=== PATIENT | male | born 1990 | race Caucasian/White ===

== ENCOUNTER 2020-08-14 15:36 | Emergency (ER) | payer MEDICAID ==
[~2020-08-14] VITALS: Ht 188 cm; Wt 99.8 kg
[2020-08-14 15:40] VITALS: BP 155/100
--- NOTE | 2020-08-14 15:47 | NUR ---
PT AMBULATED TO BED 12.
--- NOTE | 2020-08-14 15:51 | NUR ---
DR CARDOSO AT BEDSIDE EVALUATING PT.
[2020-08-14] MEDS ORDERED: LIDOCAINE VISCOUS 2% 20 ML UDC ONE (15:55)
[2020-08-14] MEDS ORDERED: DICYCLOMINE HCL LIQUID 10 MG/5 ML UDC ONE (15:55)
[2020-08-14] MEDS ORDERED: ALUMINUM HYD/MAG/SIMETHICONE 30 ML UDC ONE (15:55)
[2020-08-14] MEDS: NACL 0.9% 1,000 ML IV ONE (16:06)
[2020-08-14] MEDS: ONDANSETRON 4 MG/2 ML VIAL IVP ONE (16:07)
[2020-08-14] MEDS: DICYCLOMINE HCL LIQUID 20 MG, ALUMINUM HYD/MAG/SIMETHICONE 30 ML, LIDOCAINE VISCOUS 2% ... PO ONE ×3 (16:08)
--- NOTE | 2020-08-14 16:10 | NUR ---
C/O RIGHT CHEST PAIN X 2 DAYS S/P HEAVY DRINKING X 9 DAYS.PT AOX 4 , AFIBRILE , AMBULATORY WITH STEADY GAIT . PINK PALPEBRAL CONJUNCTIVA , ANICTERIC SCLERA , SCE , FLAT SOFT ABDOMEN. MED HX: DENIES
[2020-08-14 16:45] LABS: BASOPHILS % (AUTO) 0.5 % (0.0-2.0); EOSINOPHILS % (AUTO) 0.2 % (0.0-4.0); HEMATOCRIT 42.7 % (36-52); LYMPHOCYTES # (AUTO) 1.3 K/uL (2.0-11.5); MEAN CORPUSCULAR HEMOGLOBIN 33 pg (27-31); MEAN CORPUSCULAR HGB CONC 35 g/dL (33-37); MEAN CORPUSCULAR VOLUME 93.6 fL (80-94); MONOCYTES # (AUTO) 0.4 K/uL (0.8-1.0); MONOCYTES % (AUTO) 7.9 % (1.7-9.3); NEUTROPHILS # (AUTO) 3.3 K/uL (1.8-7.7); NEUTROPHILS % (AUTO) 66.4 % (42.2-75.2); PLATELET COUNT (AUTO) 293 K/uL (140-450); RED BLOOD CELL COUNT(AUTO) 4.56 MIL/uL (4.20-6.10); RED CELL DISTRIBUTION WIDTH 14.1 % (11.6-13.7)
[2020-08-14 16:52] LABS: BARBITURATE, URINE NEGATIVE ng/ml (NEG <=200); BENZODIAZEPINE, URINE NEGATIVE ng/mL (NEG <=200); CANNABINOID, URINE NEGATIVE ng/mL (NEG <=50); COCAINE, URINE NEGATIVE ng/mL (NEG <=300); OPIATE, URINE NEGATIVE ng/mL (NEG <=2000); PHENCYCLIDINE SCREEN,URINE NEGATIVE ng/mL (NEG <=25)
[2020-08-14 16:58] LABS: ALBUMIN 4.2 g/dL (3.4-5.0); ANION GAP 16.9 (8-16); CARBON DIOXIDE 25.3 mmol/L (21-32); CREATININE 1.2 mg/dL (0.6-1.3); MAGNESIUM 2.2 mg/dL (1.8-2.4); POTASSIUM 3.2 mmol/L (3.5-5.1); TOTAL BILIRUBIN 0.9 mg/dL (0.0-1.0)
[2020-08-14] MEDS: POTASSIUM CHLORIDE 10 MEQ TABER PO ONE (17:16)
[2020-08-14 17:36] VITALS: BP 150/90
--- NOTE | 2020-08-14 17:37 | NUR ---
Patient discharged with v/s stable. Written and verbal after care instructions given and explained regarding alcoholism and hypokalemia. Patient alert, oriented and verbalized understanding of instructions. Ambulatory with steady gait. All questions addressed prior to discharge. ID band removed. Patient advised to follow up with PMD. Rx of mylanta and zofran given. Patient educated on indication of medication including possible reaction and side effects. Opportunity to ask questions provided and answered.
== END 2020-08-14 17:37 | disposition home or self-care (01) ==
LOC: MED 15:36
DX: F10.99 Alcohol use, unspecified with unspecified alcohol-induced disorder (principal); K29.20 Alcoholic gastritis without bleeding; R11.2 Nausea with vomiting, unspecified; R07.9 Chest pain, unspecified; F17.210 Nicotine dependence, cigarettes, uncomplicated; Z71.6 Tobacco abuse counseling
CPT/HCPCS: 36415; 80053; 80305; 83690; 83735; 85025; 96361; 96374; 99283; J2405; J7030; 96360

== ENCOUNTER 2022-06-16 20:02 | Emergency (ER) | payer OTHER, MEDICAID ==
[~2022-06-16] VITALS: Ht 188 cm; Wt 115.2 kg
[2022-06-16 20:09] VITALS: BP 134/103
--- NOTE | 2022-06-16 20:14 | NUR ---
PT TO BED 08.
--- NOTE | 2022-06-16 20:29 | NUR ---
ermd at bedside.
[2022-06-16] MEDS ORDERED: ATA25 PO (20:37)
--- NOTE | 2022-06-16 20:40 | NUR ---
no nursing interventions required.
[2022-06-16 20:42] VITALS: BP 134/103
== END 2022-06-16 20:42 | disposition home or self-care (01) ==
LOC: MED 20:02
DX: F41.9 Anxiety disorder, unspecified (principal)
CPT/HCPCS: 99283